=== PATIENT | female | born 1930 | race Caucasian/White ===

== ENCOUNTER → 2017-06-09 | Outpatient (CLI) | payer MEDICARE, BC ==
[~2017-06-09] MED LIST: ALDACTONE25 MG PO; ANTIVERT25 MG PO; ASPIR 8181 MG PO; BACTRIM DS TAB1 EACH PO; CALCIUM 600 +1 EAC2 PO; CARVEDILOL3.125 MG PO; CEFDINIR300 MG PO; COZAAR 25 MG TA25 M1 PO; ELIQUIS2.5 MG PO; ELIQUIS5 MG PO; ERYTHROMYCIN250 MG PO; FISH OIL 1,001000 M2 PO; FISHOIL; LUMIGAN2.5 M1 OP; NYSTATIN100000 UNI SW&SWALLOW; PACERONE 200 M200 M1 PO; PROTONIX40 M1 PO; TRAVATAN 0.004%5 ML OP; VITAMIN D1000 UNI1 PO; ZETIA10 MG PO; ZINC50 M1 PO
== END ==
LOC: M.RAD 09:07
DX: Z12.31 Encounter for screening mammogram for malignant neoplasm of breast (principal)

== ENCOUNTER 2017-08-19 11:47 | Inpatient (IN) | payer MEDICARE, BC ==
[~2017-08-19] VITALS: Ht 157.5 cm; Wt 57.2 kg
[~2017-08-19 11:47] MED LIST changes: -ALDACTONE25 MG PO; -ANTIVERT25 MG PO; -ASPIR 8181 MG PO; -CARVEDILOL3.125 MG PO; -CEFDINIR300 MG PO; -COZAAR 25 MG TA25 M1 PO; -ELIQUIS2.5 MG PO; -ELIQUIS5 MG PO; -ERYTHROMYCIN250 MG PO; -FISH OIL 1,001000 M2 PO; -LUMIGAN2.5 M1 OP; -NYSTATIN100000 UNI SW&SWALLOW; -PACERONE 200 M200 M1 PO; -PROTONIX40 M1 PO; -VITAMIN D1000 UNI1 PO; -ZINC50 M1 PO
[2017-08-19 11:51] VITALS: BP 144/73
[2017-08-19 12:08] LABS: ABSOLUTE BASOPHILS 0.1 thou/uL (0.0-0.2); ABSOLUTE EOSINOPHILS 0.1 thou/uL (0.0-0.7); ABSOLUTE LYMPHOCYTES 1.4 thou/uL (0.8-5.3); ABSOLUTE MONOCYTES 0.9 thou/uL (0.0-1.2); ABSOLUTE NEUTROPHILS 7.4 thou/uL (1.6-8.1); BASOPHILS 0.6 %; EOSINOPHILS 0.7 %; HEMATOCRIT 42.5 % (37.0-47.0); HEMOGLOBIN 14.2 gm/dL (12.0-15.0); LYMPHOCYTES 14.3 %; MCH 29.5 pg (26.0-34.0); MCHC 33.5 g/dL (28.0-37.0); MCV 88.2 fL (80.0-100.0); MONOCYTES 9.2 %; MPV 9.7 fl. (7.2-11.1); NUCLEATED RBCS 0 /100WBC; PLATELET COUNT* 247 thou/uL (150-400); POLYS 75.2 %; RBC 4.82 mil/uL (4.20-5.00); RDW-CV 13.1 % (10.5-14.5); WBC 9.8 thou/uL (4.0-11.0)
[2017-08-19 12:17] LABS: APTT 24.3 Seconds (25.0-31.3); INR 1.3; PROTIME 12.6 Seconds (9.20-11.50)
[2017-08-19 12:25] LABS: BUN 27 mg/dL (7-18); CALCIUM 9.1 mg/dL (8.5-10.1); CO2 25 mmol/L (21-32); CREATININE 0.8 mg/dL (0.6-1.3); GLUCOSE 124 mg/dL (70-99); POTASSIUM 3.6 mmol/L (3.5-5.1)
[2017-08-19] MEDS ORDERED: LUMIGAN2.5 M1 OP ×2 (12:27→14:59)
[2017-08-19] MEDS ORDERED: ZINC50 M1 PO (12:28)
[2017-08-19 12:36] LABS: ALBUMIN 3.8 g/dL (3.4-5.0); ALKALINE PHOSPHATASE 90 U/L (46-116); CK-MB MASS 3.4 ng/mL (<0.5-3.6); LIPASE 329 U/L (73-393); MAGNESIUM 1.7 mg/dL (1.8-2.4); NT-PRO BRAIN NAT PEPTIDE 3129 pg/mL (<300); SGOT 86 U/L (15-37); SGPT 109 U/L (30-65); TOTAL BILIRUBIN 1.3 mg/dL (<0.1-1.0); TOTAL PROTEIN 6.4 g/dL (6.4-8.2); TROPONIN-I LEVEL <0.06 ng/mL (<0.06)
[2017-08-19 13:01] LABS: CHLORIDE 106 mmol/L (98-107); SODIUM 142 mmol/L (136-145)
[2017-08-19 13:02] LABS: ANION GAP 11 mmol/L (7-16)
[2017-08-19 13:50] VITALS: BP 100/71
[2017-08-19 14:27] VITALS: BP 115/67
[2017-08-19] MEDS ORDERED: FISH OIL 1,001000 M2 PO (14:54)
[2017-08-19] MEDS ORDERED: VITAMIN D1000 UNI1 PO (14:58)
--- NOTE | 2017-08-19 15:02 | NUR ---
RECIEVED REPORT FROM GERMAN ARGUETA IN ER OF EXPECTED TRANSFER AT 1340- DX: SOA WITH CHEST PAIN; A-FIB WITH RVR RATES IN 130'S- PT ARRIVED TO UNIT VIA CART, SBA TO BED- VOCATIONAL NURSE PLACED ORDERED, TRACING A-FIB RATE CONTROLLED WITH CARDIZEM DRIP INFUSING AT 10ML/HRN PRESCIBED- PT A&O X4- CONTINENT OF BOWEL AND BLADDER, OCCASIONAL STRESS INCONTINENTS REPORTED- SBA WITH TRANSFERS FOR SAFETY- LCTA, DIMINISHED IN BASES, RESP EVEN AND UN-LABORED- SOA REPORTED ON EXERTION- VS 98.6 16 115/67 74 995 ON 2L VIA NC- ABDOMEN SOFT/ROUND/NON-TENDER, BS X4 QUADS- PT REPORTS LAST BM 08/17/17, REPORTS PROBLEMS WITH CONSTIPATION ON OCCASSION- +1 BLE EDEMA NOTED- SKIN C/D/I, HEALING LIGHT PICK RASH REPORTED TO BE FROM SHINGLES NOTED TO RIGHT CHIN- WEARS GLASSES FOR EYE SIGHT- REPORTS UPPER AND LOWER PARTIAL, BUT ONLY HAS UPPER PARTIAL WITH HER AT THIS TIME- IV NOTED TO RIGHT AC WITH CARDIZEM INFUSSING PRESCIBED- CARDIOLOGY HERE TO SEE WITH ORDERS NOTED FOR STRESS TEST IN AM, NPO AT MIDNIGHT WITH NO CAFFEINE AT THIS TIME TO COMPLETION OF TEST-PT DENIES ANY C/O PAIN/DISCOMFORT AT THIS TIME- CALL LIGHT AND PERSONAL BELONGINGS WITH IN REACH- HOURLY ROUNDS IN PLACE R/T SAFETY/NEEDS- ALL NEEDS MET AT THIS TIME-[facility]
--- NOTE | 2017-08-19 16:05 | EKG ---
[place] [address] ELECTROCARDIOGRAM REPORT Name: CICI CORTEZ Room: [address] IN 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 : 1930 Requested By: Tahir Escobar Order Number: [id number] MD: Carrington Vinson Measurements Intervals [place] Rate: 153 P: VA: QRS: 27 QRSD: 79 T: 148 QT: 298 QTc: 476 Interpretive Statements Atrial fibrillation with rapid V-rate Repolarization abnormality, prob rate related Compared to ECG 05/15/2011 08:22:36 Early repolarization now present Sinus rhythm no longer present Ventricular premature complex(es) no longer present Electronically Signed On 08-19-2017 16:05:26 CDT by Carrington Vinson [email or web address] <ELECTRONICALLY SIGNED> By: Carrington Vinson MD, [facility] 08/19/17 1605 1155 1155 Carrington Vinson MD, [facility] /EPI
--- NOTE | 2017-08-19 16:56 | 2DMMODE ---
[place] [address] 2 D/M-MODE ECHOCARDIOGRAM Name: CICI CORTEZ Room: [address] IN [facility]#: [id number] Admission: 08/19/17 Attend Phys: Lynda Sevilla, Discharge: Date of : 32 Date of Service: 08/19/17 1656 Report #: [id number] THIS REPORT FOR: //name// APPROVED REPORT Study performed: 08/19/2017 13:35:05 EXAM: Comprehensive 2D, Doppler, and color-flow Echocardiogram Patient Location: In-Patient Room #: er Status: routine BSA: 1.54 HR: 77 bpm BP: 102/53 mmHg Rhythm: NSR Other Information Study Quality: Good Indications Atrial Fibrillation 2D Dimensions LVEF(%): 21.17 (>50%) IVSd: 9.20 (7-11mm) LVOT Diam: 19.72 (18-24mm) LVDd: 40.92 mm PWd: 10.09 (7-11mm) Ascending Ao: 25.90 (22-36mm) LVDs: 37.03 (25-40mm) Aortic Root: 26.28 mm Cabrera's LVEF: 21.17 % Volumes Left Atrial Volume (Systole) LA ESV Index: 48.80 mL/m2 Aortic Valve AoV Peak Ruslan.: 1.09 m/s AO Peak Gr.: 4.77 mmHg LVOT Max P.05 mmHg AO Mean Gr.: 2.48 mmHg LVOT Mean P.90 mmHg LVOT Max V: 0.72 m/s AO V2 VTI: 16.20 cm LVOT Mean V: 0.43 m/s JENNY (VTI): 2.34 cm2 LVOT V1 VTI: 12.39 cm AI [place]: 2.32 m/s2 AI PHT: 517.87 [place] [address] 2 D/M-MODE ECHOCARDIOGRAM Name: CICI CORTEZ Room: [address]#: [id number] Admission: 08/19/17 Attend Phys: Lynda Sevilla, Discharge: Date of : 32 Date of Service: 08/19/17 1656 Report #: [id number] Mitral Valve MV Decel. Time: 188.28 ms MV PHT: 54.60 ms MVA (PHT): 4.03 cm2 TDI Medial E' Ruslan.: 0.09 m/s Lateral E' Ruslan.: 0.13 m/s Pulmonary Valve PV Peak Ruslan.: 0.78 m/s PV Peak Gr.: 2.45 mmHg Tricuspid Valve TR Peak Gr.: 19.15 mmHg RVSP: 34.00 mmHg Left Ventricle Left ventricle is moderately dilated. There is severe diffuse hypokinesis of LV wall motion There is normal left ventricular wall thickness. Left ventricular systolic function is severely decreased. LVEF is 20-25%. Right Ventricle The right ventricle is normal size. The right ventricular systolic function is normal. Atria Left atrium is moderately dilated. Right atrium is severely dilated. Aortic Valve Mild aortic valve sclerosis. Mild to moderate aortic regurgitation. There is no aortic valvular stenosis. Mitral Valve The mitral valve is normal in structure. Moderate mitral regurgitation. No evidence of mitral valve stenosis. Tricuspid Valve The tricuspid valve is normal in structure. Moderate to severe tricuspid regurgitation. The RVSP is 30-35 mmHg. Pulmonic Valve The pulmonary valve is normal in structure. There is no pulmonic valvular regurgitation[place] [address] 2 D/M-MODE ECHOCARDIOGRAM Name: DIEGOSHELBICICI tOf Room: [address]#: [id number] Admission: 08/19/17 Attend Phys: Lynda Sevilla, Discharge: Date of : 31 Date of Service: 08/19/17 1656 Report #: [id number] The aortic root is normal in size. IVC is dilated and collapses <50% with inspiration. Pericardium There is no pericardial effusion. Left pleural effusion. <Conclusion> Left ventricle is moderately dilated. There is normal left ventricular wall thickness. Left ventricular systolic function is severely decreased. LVEF is 20-25%. The right ventricle is normal size. Left atrium is moderately dilated. Right atrium is severely dilated. Mild aortic valve sclerosis. Mild to moderate aortic regurgitation. There is no aortic valvular stenosis. The tricuspid valve is normal in structure. Moderate to severe tricuspid regurgitation. The RVSP is 30-35 mmHg. The aortic root is normal in size. IVC is dilated and collapses <50% with inspiration. There is severe diffuse hypokinesis of LV wall motion The mitral valve is normal in structure. Moderate mitral regurgitation. <ELECTRONICALLY SIGNED> By: Carrington Vinson MD, FACC 08/19/171655 55 55 Carrington Vinson MD, FACC /INF
[2017-08-19 20:00] VITALS: BP 130/76
[2017-08-20] VITALS: BP 114/62
[2017-08-20 04:00] VITALS: BP 124/66
[2017-08-20 04:54] LABS: HEMATOCRIT 37.5 % (37.0-47.0); HEMOGLOBIN 12.4 gm/dL (12.0-15.0); MCH 29.1 pg (26.0-34.0); MCHC 33.1 g/dL (28.0-37.0); MCV 88.1 fL (80.0-100.0); MPV 10.1 fl. (7.2-11.1); RBC 4.26 mil/uL (4.20-5.00); WBC 7.8 thou/uL (4.0-11.0)
[2017-08-20 05:09] LABS: CALCIUM 8.4 mg/dL (8.5-10.1); CREATININE 0.5 mg/dL (0.6-1.3); POTASSIUM 3.7 mmol/L (3.5-5.1)
[2017-08-20 08:00] VITALS: BP 131/70
--- NOTE | 2017-08-20 09:14 | NUR ---
ASSUMED CARE OF PT THIS AM AROUND 0715- OUTDOOR EMERGENCY CARE TECHNICIAN IN PLACE ORDERED, TRACING A-FIB, RATE CONTROLED WITH IV CARDIZEM INFUSING AT 10ML/HR INDICATED- UPON ASSESSMENT PT NOTED TO BE RESTING IN BED- PT A&O X4, FORGETFUL AT TIMES- CONTINENT OF BOWEL AND BLADDER, OCCASIONAL STRESS INCONTINENTS NOTED- SBA WITH TRANSFERS FOR SAFETY- LCTA, DIMINISHED IN BASES- RESP EVEN AND UN-LABORED- VSS, O2 SAT 93% ON RA- ABDOMEN SOFT/FLAT/NON-TENDER, BS X4 QUADS- LAST BM REPORTED X3 DAYS AGO- IV NOTED TO LEFT FA INTACT, LR INFUSING ORDERED, IV NOTED TO RIGHT AC INTACT WITH CARDIZEM INFUSING ORDERED- IV ABT GIVEN PRESCIBED, NO ADVERSE REACTIONS TO NOTE- STRESS TEST CANCELLED THIS AM WITH NEW MEDICATIONS STARTED AND GIVEN R/T HF THIS AM PER L.CASE, TAP GRINDER- 2+ PITTING EDEMA NOTED TO BLE WITH IV LASIX 40MG GIVEN PRESCIBED- PT CURRENLTY NPO FOR POSSIBLE CATH THIS SHIFT- PT DENIES ANY C/O PAIN/DISCOMFORT AT THIS TIME- CALL LIGHT AND PERSONAL BELONGINGS WITH IN REACH- HOURLY ROUNDS IN PLACE R/T SAFETY/NEEDS- ALL NEEDS MET AT THIS TIME-WCTM
[2017-08-20 11:44] VITALS: BP 100/45
--- NOTE | 2017-08-20 11:59 | NUR ---
CM ASSESSMENT: Pt is A&O. Resides at home with her son. Independent with ADLs, continues to cook, clean and drive. No DME. No hx of HH. Hx of skilled at [facility] after a broken leg. Plan to have stress test today. Pt voiced concern regarding the potential cost of medications at v[place], updated [facility] [employer]. Goal is to return home once medically stable. Following.
[2017-08-20 15:47] VITALS: BP 98/47
--- NOTE | 2017-08-20 16:04 | CARDNUC ---
[place] [address] CARDIAC NUCLEAR IMAGING REPORT Name: CICI OCRTEZ Room: [address] IN [facility]#: [id number] Admission: 08/19/17 Attend Phys: Lynda Sevilla, Discharge: Date of : 32 Date of Service: 08/20/17 1603 Report #: [id number] THIS REPORT FOR: //name// APPROVED REPORT Study performed: 08/19/2017 14:36:00 Exam: Nuclear Stress Test Indication: Chest pain, Atrial Fibrillation Patient Location: In-Patient Room #: 200 Stress Tech: Subha Tesfaye Stress Nurse: Alejandra Alcantar RN NM Tech:ENMA Kenney Ht: 5 ft 2 in Wt: 130 lbs BSA: 1.59 m2 BMI: 23.77 Medical History Medical History: hyperlipidemia Medications: diltiazem, amiodorone, apixaban, carvedilol, asa 81, losartan Allergies: nkda Cardiac Risk Factors: age, hyperlipidemia Stress Test Details Stress Test: Pharmacologic stress testing performed using 0.4 mg of regadenoson per 5 mL given IV over 10 seconds. Reason for pharmacologic stress test: physical limitation. HR Resting HR: 60 bpm Max Heart Rate (APMHR): 135 bpm Max HR Achieved: 78 bpm Target HR (85% APMHR): 114 bpm % of APMHR: 57 Recovery HR: 65 bpm HR response to stress: Normal HR response to stress BP Resting BP: 101/54 mmHg Max BP: 110/57 mmHg BP response to stress: Normal blood pressure response to stress. ECG Resting ECG: [place] [address] CARDIAC NUCLEAR IMAGING REPORT Name: CICI CORTEZ Room: [address]#: [id number] Admission: 08/19/17 Attend Phys: Lynda Sevilla, Discharge: Date of : 31 Date of Service: 08/20/17 1603 Report #: [id number] Stress ECG: afib ST Change: None Recovery ECG: afib Clinical Reason for Termination: Completed protocol Stress Symptoms: None Exercise duration: 0 min sec Exercise capacity: 1 METs Stress ECG Conclusion negative NM EXAM: Myocardial Perfusion STRESS/REST Imaging Protocol: Stress Tc-99m/Rest Tc-99m 2 days Pharmacologic Stress Pharmacologic stress test was performed by injecting Regadenoson 0.4 mg IV push followed by the intravenous injection of 31.4 mCi of Tc-99m Sestamibi. Time of stress injection: 1340 Date: 08/20/2017 Time of stress imagin Administration Route: IV Gated Stress SPECT was performed 40 minutes after stress injection. The images were gated to evaluate regional wall motion and calculate left ventricular ejection fraction. Prone imaging was performed. Study Quality Study: Good Artifact: No artifact Study Data At rest, the left ventricular ejection fraction was 39%.. SSS: 0 SRS: SDS: Perfusion Normal perfusion on the stress images. Wall Motion global lv dysfunction [place] [address] CARDIAC NUCLEAR IMAGING REPORT Name: CICI CORTEZ Room: [address]#: [id number] Admission: 08/19/17 Attend Phys: Lynda Sevilla, Discharge: Date of : 31 Date of Service: 08/20/171602 Report #: [id number] ECG Findings: negative for ischemia Clinical Findings: negative for ischemia Nuclear Findings: negative for ischemia Exercise Capacity: not assessed Left Ventricular Function: abnormal Risk Study: moderate Findings compatible with a nonischemic cardiomyopathy <Conclusion> negative <ELECTRONICALLY SIGNED> By: Michele Lino MD, FACC 08/20/171602 02 02 Michele Lino MD, FACC /INF
--- NOTE | 2017-08-20 16:40 | NUR ---
PT CURRENTLY RESTING IN BED, SON AT SIDE VISITING- PICKLE PUMPER IN PLACE ORDERED, TRACING A-FIB/RATE CONTROLLED- CARDIZEM DRIP D/C'D THIS SHIFT ORDERED- STRESS TEST COMPLETED ORDERED, NOTED TO BE NEAGATIVE FOR ISCHEMIA- LVF ABNORMAL; RISK STUDY MODERATE- IV TO RIGHT AC AND LEFT FA INTACT AND SL-GOOD PO INTAKE NOTED- DENIES ANY C/O PAIN/DISCOMFORT- CALL LIGHT AND PERSONAL BELONGINGS WITH IN REACH- ALL NEEDS MET AT THIS TIME-WCTM
[2017-08-20 20:00] VITALS: BP 95/64
[2017-08-21] VITALS: BP 112/56
[2017-08-21 04:44] VITALS: BP 121/65
--- NOTE | 2017-08-21 05:29 | NUR ---
ASSUMED CARE AROUND 1930. PT A/OX4 BUT FORGETFUL DURING NIGHT, ATTEMPTING TO GET UP AND STATING SHE NEEDED TO GET TO THE HOSPITAL. EASILY REORIENTED AND PLEASANT. TELE MONITOR TRACING AFIB WITH HR 60-70'S. ON ROOM AIR, BUT APPEARS DYSPNEIC AT TIMES. IV'S SALINE LOCKED. BP STABLE. DENIED PAIN. FALL PRECAUTIONS IN PLACE, CALL LIGHT IN REACH, WILL CONTINUE WITH PLAN OF CARE.
--- NOTE | 2017-08-21 07:15 | NUR ---
ASSUMED CARE OF PT ASSESSED AND DOCUMENTED. PT IS ON CARDIAC MONITER TRACING A-FIB HR 81. PT IS A&O WITH NO C/O PAIN. VSS WNL. PT IS ON ROOM AIR. SHE IS AFEBRILE. BED IS IN LOW POSTION CALL LIGHT IS IN REACH. WM.
[2017-08-21 08:00] VITALS: BP 146/78
[2017-08-21 12:00] VITALS: BP 82/47
--- NOTE | 2017-08-21 15:48 | NUR ---
PAGED DR PEREZ RE: PTS BRADICARDIA OF 27. SHE CAME RIGHT BACK TO 40'S. DR BREAUX IS AWARE. HE SPOKE WITH PT AND PT WANTS TO BE A FULL CODE.
[2017-08-21 16:22] VITALS: BP 99/58
--- NOTE | 2017-08-21 17:08 | NUR ---
PT HAS RESTED IN HER ROOM THIS SHIFT. PTS HR HAS DROPPED BELOW 50 X3 THIS SHIFT. EACH TIME HR DROPS PT HAS NAUSEA. PT HAS NOT HAD AN APPETITE. HAVE TRIED TO ENCOURAGE EATING. PT HAS NS RUNNING AT 250 X2 HOURS. GAVE PT A FAN AFTER PT C/O HEAT. PT HAS HAD NO S OR SX OF ADVERSE REACTION TO ABT'S NOTED. PT DID STATE SHE WISHES TO BE A FULL CODE TO DR BREAUX. PLACED 02 2L ON PT AFTER 02 DROPPED BELOW 90. PT GETS ANXIOUS AT TIMES. SON IS AT BEDSIDE. EDUCATION GIVEN ON DEMAND. HOURLY ROUNDING COMPLETE.
[2017-08-21 20:15] VITALS: BP 110/78
[2017-08-22] VITALS: BP 144/68
[2017-08-22 04:00] VITALS: BP 148/77
--- NOTE | 2017-08-22 06:25 | NUR ---
ASSUMED CARE AROUND 1930. PT A/OX3, FORGETFUL AND DISORIENTED ON LOCATION AT TIMES ATTEMPTING TO GET UP WITHOUT ASSISTANCE THINKING SHE WAS AT HOME. VERY PLEASANT. TELE MONITOR TRACING AFIB WITH HR 70-80'S, NO EPISODES OF BRADYCARDIA THROUGHOUT NIGHT. VSS, AFEBRILE. ON 2L NC, DYSPNEA STILL NOTED. IV'S SALINE LOCKED. UP SBA TO BR. PT UNSTEADY ON FEET. CALL LIGHT IN REACH, BEDALARM IN PLACE, WILL CONTINUE WITH PLAN OF CARE.
[2017-08-22 08:18] VITALS: BP 142/90
--- NOTE | 2017-08-22 09:18 | NUR ---
ASSUMED CARE OF PT THIS AM AROUND 07- ARTIFICIAL CHERRY MAKER IN PLACE ORDERED, TRACING A-FIB/RATE CONTROLLED- UPON ASSESSMENT PT NOTED TO BE RESTING IN BED- T A&O X 3, WITH INTERMITTENT CONFUSSION NOTED- CONTINENT OF BOWEL AND BLADDER, STRESS INCONTINENTS ON OCCASION- ASSIST X1 WITH TRANSFERS, UNSTEADY GAIT NOTED- LCTA, RESP EVEN AND UN-LABORED AT REST; DYSPNEA NOTED ON EXERTION- VSS, O2 SAT 98% ON RA- ABDOMENT SOFT/ROUND/NON-TENDER, BS X4 QUADS- LAST BM REPORTED 08/20/17- 2+ BLE EDEMA NOTED, LEG ELEVATION ENCOURAGED- IV NOTED TO LEFT FA AND RIGHT FA INTACT AND SL- IV ABT GIVEN THIS AM, NO ADVERSE REACTIONS TO NOTE- FAIR PO INTAKE NOTED THIS AM WITH BREAKFAST- 2/1 PULSES- PT DENIES ANY C/O PAIN/DISCOMFORT AT THIS TIME- BED ALARM IN PLACE AND WORKING FOR PT SAFETY- CALL LIGHT AND PERSONAL BELONGINGS WITH IN REACH- HOURLY ROUNDS IN PLACE R/T SAFETY/NEEDS- ALL NEEDS MET AT THIS TIME-WCTM
[2017-08-22 12:00] VITALS: BP 144/79
--- NOTE | 2017-08-22 14:56 | EKG ---
[place] [address] ELECTROCARDIOGRAM REPORT Name: CICI CORTEZ Room: [address] ADM IN .R.#: [id number] Admission: 08/19/17 Attend Phys: Lynda Sevilla MD Discharge: Date of : 31 Report #: [id number] THIS REPORT FOR: //name// [facility] Test Date: 2017-08-21 Test Time: 15:24:41 Pat Name: CICI CORTEZ Department: Room: [address] Gender: F Fixture Maker: : 1930 Requested By: Horace Flores Order Number: [id number] Saúl MD: Ishan Becker Measurements Intervals [place] Rate: 67 P: MA: QRS: 31 QRSD: 100 T: QT: 531 QTc: 561 Interpretive Statements Atrial fibrillation Nonspecific T abnormalities, diffuse leads Prolonged QT interval Compared to ECG 08/19/2017 11:55:16 T-wave abnormality now present Prolonged QT interval now present Early repolarization no longer present Electronically Signed On 08-22-2017 14:56:31 CDT by Ishan Becker [email or web address] <ELECTRONICALLY SIGNED> By: Ishan Becker MD, FACC 08/22/17 1456 1524 1524 Ishan Becker MD, FAC /EPI
[2017-08-22 16:00] VITALS: BP 138/80
--- NOTE | 2017-08-22 17:22 | NUR ---
PT CURRENTLY RESTING IN BED- CYTOGENETIC TECHNICIAN IN PLACE AND CONTINUED ORDERED, TRACING A-FIB RATE CONTROLED- IV TO RIGHT AND LEFT FA INTACT AND SL- POOR PO INTAKE NOTED WITH MEALS THIS SHIFT- PT STATES TO BE NAUSIOUS- PRN ZOFRAN GIVEN PRIOR TO LUNCH AN DINNER TO HELP WITH NAUSEA, SLIGHT IMPROVEMENT NOTED WITH INTAKE- COREG RESUMED PER THIS SHIFT AT 1.5625 BID, HR STABLE AT THIS TIME- CHEST X-RAY ORDERED FOR IN AM PER - PT DENIES ANY PAIN- CALL LIGHT AND PERSONAL BELONGINGS WITH IN REACH- PT CHECKED ON FREQUENTLY R/T SAFETY/NEEDS- ALL NEEDS MET AT THIS TIME-WCTM
[2017-08-22 20:00] VITALS: BP 143/90
[2017-08-23] VITALS: BP 145/87
--- NOTE | 2017-08-23 01:59 | NUR ---
ASSUMED CARE AT 1999, ASSESSMENT CHARTED. PATIENT ALERT/ORIENTED X4, RESTING IN BED. DENIES PAIN OR NEEDS. MEDS PER MAR. REFUSING SCD'S. BED ALARM ON. CALL LIGHT WITHIN REACH, ENCOURAGED TO CALL FOR NEEDS.
[2017-08-23 04:00] VITALS: BP 143/84
--- NOTE | 2017-08-23 04:27 | NUR ---
STAFF IN ROOM TO DO AM VITALS. PATIENT REQUESTING TO USE BATHROOM. UP WITH STANDBY ASSIST. REMAINS ALERT/ORIENTED X4, STATES HOPING TO GO HOME TODAY. BED ALARM REPLACED. WILL MONITOR.
[2017-08-23 08:00] VITALS: BP 154/100
[2017-08-23 11:30] VITALS: BP 140/81
--- NOTE | 2017-08-23 13:09 | NUR ---
ASSUMED RESPONSIBILITY OF PT THIS AM PT IS ALERT AND ORIENTED BUT FORGETFUL AFIB ON THE MONITOR TACHY AT TIMES LOW 100S ELIQUIS STARTED BLEEDING PRECAUTIONS IN PLACE SBA TO BSC 2+ EDEMA TO BLE ELEVATED WHEN IN BED IV TO RFA WENT BAD SO DC'D STILL IV TO LFA DENIES ANY PAIN POOR APPETITE AND NAUSEATED AT TIMES CALL LIGHT IN REACH BED ALARM ON
[2017-08-23 16:00] VITALS: BP 137/79
[2017-08-23 19:30] VITALS: BP 137/85
--- NOTE | 2017-08-23 20:00 | NUR ---
UPON ASSESSMENT THIS RN NOTICED PT WITH SLURRED SPEECH. SPOKE WITH PREVIOUS NIGHT RN ABOUT PATIENTS BASELINE IN WHICH THE PATIENT DID NOT HAVE. PERFORMED BRIED NIH ON PATIENT- IN WHICH SHE SCORED A 2 FOR DROWSINESS AND SLURRED SPEECH. I ALSO ATTEMPTED TO HAVE PATIENT SWALLOW SOME WATER AND A SMALL PILL AND SHE WAS UNABLE TO SWALLOW WITHOUT CHOKING AND GAGGING. PT STATED THAT SHE HAS HAD WORSENING DYSPHAGIA OVER THE LAST COUPLE OF DAYS. SPOKE WITH DR HERNÁNDEZ ON UNIT ABOUT PT. ORDERED HEAD CT AND SPEECH EVAL FOR PT. WILL CONT TO CLOSELY MONITOR.
[2017-08-24] VITALS (10 sets, daily range): BP systolic 115–142; BP diastolic 54–99
--- NOTE | 2017-08-24 04:44 | NUR ---
END SHIFT: PT REMAINS SLURRED IN SPEECH WITH DYSPHAGIA WITH NO CHANGES. NIH REMAINS 2. RESTED WELL. PT IS STILL DROWSY BUT ORIENTED. AFIB ON MONITOR. RATE CONTROLLED. VSS. SAFETY PRECAUTIONS IN PLACE. CALL LIGHT IN REACH. WILL CONT TO MONITOR.
[2017-08-24 05:35] LABS: CALCIUM 8.4 mg/dL (8.5-10.1); CREATININE 0.7 mg/dL (0.6-1.3)
--- NOTE | 2017-08-24 11:24 | NUR ---
ASSUMED RESPONSIBILITY OF PT THIS AM PT IS ALERT AND ORIENTED X 4 GARBLED SPEECH FROM [facility] POSSIBLY NYSTATIN ORDERED SRINIVASAN WILL BE THIS AFTERNOON MAG AND POTASSIUM ARE BEING REPLACED LFA IV CONT NEGATIVE FOR SEPSIS HRIR AT 93 AND TRACKING A-FIB 2+ EDEMA TO BLE CONTINUES POOR APPETITE SBA TO BSC CALL LIGHT IN REACH WILL CONT TO MONITOR
--- NOTE | 2017-08-24 18:38 | NUR ---
PT UP FROM SRINIVASAN BACK IN NSR WITH PACS IN THE 50S TO 70S ALERT AND ORIENTED X4 FORGETFUL AT TIMES DENIES ANY PAIN IS NOT DROWSY SON AT BEDSIDE NO CONCERNS AT THIS TIME NYSTATIN SWISH AND SWALLOW CONTINUES FAIR APPETITE CALL LIGHT IN REACH
[2017-08-25] VITALS: BP 134/67
[2017-08-25 04:00] VITALS: BP 144/66
--- NOTE | 2017-08-25 04:23 | NUR ---
END SHIFT: PT RESTED WELL. NO COMPLAINTS. SR/SB WITH FREQUENT PAC'S. ADDITIONAL EKG OBTAINED OVER SHIFT TO CONFIRM. PT REMAINS DROWSY. NO C/O PAIN. PT IS STILL VERY WEAK AND DROWSY. O2 SATS HAVE BEEN DROPPING ON RA AND PT IS REQUIRING O2 TO KEEP O2 SAT >91%. PT IS CONCERNED BY THIS. SAFETY PRECAUTIONS IN PLACE. CALL LIGHT IN REACH. PERFORMED HOURLY ROUNDING. WILL CONT TO MONITOR.
[2017-08-25 05:00] LABS: HEMATOCRIT 38.7 % (37.0-47.0); HEMOGLOBIN 13.1 gm/dL (12.0-15.0); MCHC 33.8 g/dL (28.0-37.0); MCV 86.1 fL (80.0-100.0); MPV 9.8 fl. (7.2-11.1); RBC 4.5 mil/uL (4.20-5.00); RDW-CV 13.2 % (10.5-14.5); WBC 10.2 thou/uL (4.0-11.0)
[2017-08-25 05:40] LABS: CALCIUM 8.6 mg/dL (8.5-10.1); CREATININE 0.7 mg/dL (0.6-1.3); POTASSIUM 3.6 mmol/L (3.5-5.1)
--- NOTE | 2017-08-25 07:15 | NUR ---
CHANGE OF SHIFT, BEDSIDE REPORT GIVEN ASSUMED PATIENT CARE PATIENBT SEEN AT BEDSIDE, NO REQUESTS
[2017-08-25 08:00] VITALS: BP 148/65
[2017-08-25] MEDS ORDERED: PACERONE 200 M200 M1 PO (08:29)
[2017-08-25] MEDS ORDERED: CEFDINIR300 MG PO (08:29)
[2017-08-25] MEDS ORDERED: NYSTATIN100000 UNI SW&SWALLOW (08:29)
[2017-08-25] MEDS ORDERED: CARVEDILOL3.125 MG PO (08:29)
[2017-08-25] MEDS ORDERED: ASPIR 8181 MG PO (08:29)
[2017-08-25] MEDS ORDERED: COZAAR 25 MG TA25 M1 PO (08:29)
[2017-08-25] MEDS ORDERED: ELIQUIS5 MG PO (08:29)
[2017-08-25 10:28] VITALS: BP 148/65
[2017-08-25 11:24] VITALS: BP 147/72
[2017-08-25 14:14] VITALS: BP 148/65
--- NOTE | 2017-08-25 14:15 | NUR ---
patient dcd to home with h/h iv and heart monitor removed personal belongings returned all dc info given, acknowledged and signed copies given assisted out via [facility] good condition to waitng car
--- NOTE | 2017-08-25 15:01 | NUR ---
[facility] Son provided dc transportation.
--- NOTE | 2017-08-25 15:46 | EKG ---
[place] [address] ELECTROCARDIOGRAM REPORT Name: CICI CORTEZ Room: [address] IN [facility]#: [id number] Admission: 08/19/17 Attend Phys: Lynda Sevilla MD Discharge: 08/25/17 Date of : 32 Report #: [id number] THIS REPORT FOR: //name// [facility] Test Date: 2017-08-25 Test Time: 03:26:13 Pat Name: CICI CORTEZ Department: Room: [address] Gender: F Traffic Representative: MERI : 1930 Requested By: Lynda Sevilla Order Number: [id number] Saúl MD: Clemente Lafleur Measurements Intervals [place] Rate: 61 P: 73 [place]: 59 QRS: 29 QRSD: 97 T: 103 QT: 591 QTc: 596 Interpretive Statements Sinus rhythm Short [place] interval Nonspecific T abnrm, anterolateral leads Prolonged QT interval Compared to ECG 08/21/2017 15:24:41 Atrial fibrillation no longer present Electronically Signed On 08-25-2017 15:46:07 CDT by Clemente Lafleur [email or web address] <ELECTRONICALLY SIGNED> By: Clemente Lafleur MD, FAC 08/25/17 1546 0326 0326 Clemente Lafleur MD, [facility] /EPI
--- NOTE | 2017-08-31 09:55 | TEE ---
[place] [address] TRANSESOPHAGEAL ECHOCARDIOGRAM Name: CICI CORTEZ Room: [address]#: [id number] Admission: 08/19/17 Attend Phys: Lynda Sevilla, Discharge: 08/25/17 Date of : 32 Date of Service: 08/24/17 1704 Report #: [id number] THIS REPORT FOR: //name// APPROVED REPORT Study performed: 08/24/2017 14:35:20 EXAM: Transesophageal Echocardiogram Patient Location: In-Patient Room #: 200 Status: routine BSA: 1.61 HR: 92 bpm BP: 130/82 mmHg Rhythm: Atrial Fibrillation Other Information Study Quality: Good Indications Atrial Fibrillation Echo Enhancing Agent Indication: Rule out Shunt Agent(s) / Amount(s) Used: Agitated Saline 10 cc Procedure After obtaining informed consent, patient underwent transesophageal echo in the [employer]. Type of Sedation : Conscious Sedation Sedation was administered by Marialuisa Conte RN. Sedation start time: 1450 Case end Time: 1505 Sedation was achieved intravenously with: Versed (1) Fentanyl (25) Transesophageal probe was inserted and advanced into esophagus without difficulty by Ishan Becker MD, FACC. Echo enhancement indication: R/O Septal defect. Echo enhancement agent administered: Agitated Saline The SRINIVASAN was performed without complications. Synchronized Cardioversion acheived with 360 Joules after 2 attempt(s). Rhythm following Synchronized Cardioversion: Normal Sinus Rhythm Throughout the procedure, the blood pressure, pulse oximetry, cardiac rhythm, and rate were monitored. The patient tolerated the procedure without adverse effects. Recovery [address] [address] TRANSESOPHAGEAL ECHOCARDIOGRAM Name: CICI CORTEZ Room: [address]#: [id number] Admission: 08/19/17 Attend Phys: Lynda Sevilla, Discharge: 08/25/17 Date of : 32 Date of Service: 08/24/17 1704 Report #: [id number] from conscious sedation was uneventful and vital signs were stable. Left Ventricle The left ventricle is normal size. There is severe global hypokinesis. There is normal left ventricular wall thickness. Left ventricular systolic function is severely decreased. LVEF is 20-25%. Right Ventricle The right ventricle is normal size. The right ventricular systolic function is normal. Atria No thrombus is visualized in the left atrium or appendage. Interatrial septum is intact without evidence of ASD or PFO. The right atrium size is normal. Aortic Valve The aortic valve is normal in structure. Moderate aortic regurgitation. There is no aortic valvular stenosis. Mitral Valve The mitral valve is normal in structure. Moderate mitral regurgitation. No evidence of mitral valve stenosis. Tricuspid Valve The tricuspid valve is normal in structure. Pulmonic Valve The pulmonary valve is normal in structure. Great Vessels The aortic root is normal in size. Pericardium There is no pericardial effusion. <Conclusion> The left ventricle is normal size. There is normal left ventricular wall thickness. Left ventricular systolic function is severely decreased. LVEF is 20-25%. There is severe global hypokinesis. No thrombus is visualized in the left [place] [address] TRANSESOPHAGEAL ECHOCARDIOGRAM Name: CICI CORTEZ Room: [address] IN M.R.#: [id number] Admission: 08/19/17 Attend Phys: Lynda Sevilla, Discharge: 08/25/17 Date of : 32 Date of Service: 08/24/171703 Report #: [id number] Interatrial septum is intact without evidence of ASD or PFO. Moderate aortic regurgitation. Moderate mitral regurgitation. <ELECTRONICALLY SIGNED> By: Ishan Becker MD, FACC 08/24/171703 03 03 Ishan Becker MD, FACC /INF
--- NOTE | 2017-09-06 08:14 | CARD ---
[address] [address] CARDIAC CATH REPORT Name: CICI CORTEZ Room: [address]#: [id number] Admission: 08/19/17 Attend Phys: Lynda Sevilla MD Discharge: 08/25/17 Date of : 31 Report #: [id number] THIS REPORT FOR: //name// CC: Lynda Sevilla Primary Care Provider Elizabeth Loni DATE OF SERVICE: 08/24/2017 PROCEDURE: Transesophageal guided cardioversion. DESCRIPTION OF PROCEDURE: After informed consent was obtained, a transesophageal echocardiogram was performed and will be reported separately. Finding no evidence of intracardiac thrombus adequate sedation was assured. The patient was cardioverted to normal sinus rhythm with a biphasic shock of 360 joules after a failed biphasic shock of 225 joules. The patient did ultimately maintained sinus rhythm and was discharged to the floor in stable condition. IMPRESSION: 1. Persistent atrial fibrillation. 2. Successful direct current cardioversion to normal sinus rhythm. <ELECTRONICALLY SIGNED> By: Ishan Becker MD, FACC 09/06/17 0814 1645 1943[facility] Ang[facility] Becker MD, FACC /nt
--- NOTE | 2017-09-07 17:05 | CON ---
[address] [address] CONSULTATION Name: CICI CORTEZ Room: [address]#: [id number] Admission: 08/19/17 Attend Phys: Lynda Sevilla MD Discharge: 08/25/17 Date of : 31 Report #: [id number] THIS REPORT FOR: //name// CC: Lynda Ivey DATE OF SERVICE: 08/24/2017 HISTORY OF PRESENT ILLNESS: This is an 86-year-old female patient who was evaluated by me for speech difficulty. It was moderately severe. It started spontaneously. It was not associated with any focal deficit or headache. She thinks it has improved to some extent. REVIEW OF SYSTEMS: Indicate that this patient was diagnosed with thrush and had some infection in the mouth region. She was admitted because she was in atrial fibrillation. She is being evaluated by Cardiology. She did have some chest pain a few days ago. Again, on admission, when I saw, the patient was not having any chest pain. She has a history of high cholesterol, hysterectomy, glaucoma in the past. She has some venous stasis. She is being evaluated by Cardiology. I carried out the 14-point review of system and this was her relevant 14-point review of system. PAST MEDICAL HISTORY: Negative for any stroke. FAMILY HISTORY: Negative for early age stroke. SOCIAL HISTORY: Indicates she does not smoke or drink any alcohol. PHYSICAL EXAMINATION: NEUROLOGIC: Indicate she is alert, responsive, able to follow simple and complex command. Her speech is slightly slurred. Her fund of knowledge and memory is at her baseline. Cranial nerve examination 2-12 does not appear to be showing any definite abnormality. Her strength, sensation, reflexes and tone are symmetrical. There is no papilledema. There is no meningeal sign. There is no cerebellar sign. GENERAL: She is moderately built individual who does not have any dysmorphic features of eyes, ears and face. Her vision and hearing looks adequate. EXTREMITIES: Her pulses are palpable. She has no edema, cyanosis or jaundice. CARDIAC: Indicate she is admitted with atrial fibrillation. RESPIRATORY: Does not demonstrate any respiratory difficulty or rhonchi on either side. VITAL SIGNS: Her blood pressure is 115/79, respirations 16, pulse is 106, temperature is 97.4. LABORATORY DATA: Her WBC count is normal. She did have a carotid Doppler done which was unremarkable. Her MRI is pending and we [place] [address] CONSULTATION Name: CICI CORTEZ Room: [address]#: [id number] Admission: 08/19/17 Attend Phys: Lynda Sevilla MD Discharge: 08/25/17 Date of : 31 Report #: [id number]. IMPRESSION: If this patient has a focal pathology, I suspect that is probably the cause of her speech difficulty. However, because of the atrial fibrillation, central nervous system cause should be excluded. She is already scheduled to have an MRI done and we will see what the MRI shows and go from there. Thank you very much for this referral and if you have any question, please feel free to contact me. <ELECTRONICALLY SIGNED> By: Vikas Bridges MD 09/07/17 1705 1241 [id number] Bridges MD /nt
== END 2017-08-25 14:46 | disposition home health service (06) | DRG 871 ==
LOC: M.ERS 11:47 → M.TBA-ER 12:57 → M.2W 12:57
PROVIDERS: Emergency Medicine Emergency Medical Services; Internal Medicine Cardiovascular Disease; ADMIT Internal Medicine
DX: A41.9 Sepsis, unspecified organism (principal); I50.21 Acute systolic (congestive) heart failure; J18.1 Lobar pneumonia, unspecified organism; J96.01 Acute respiratory failure with hypoxia; I50.23 Acute on chronic systolic (congestive) heart failure; I42.8 Other cardiomyopathies; I48.91 Unspecified atrial fibrillation; H40.9 Unspecified glaucoma; I87.8 Other specified disorders of veins; B37.9 Candidiasis, unspecified; R13.10 Dysphagia, unspecified; E78.00 Pure hypercholesterolemia, unspecified; M19.90 Unspecified osteoarthritis, unspecified site; Z79.899 Other long term (current) drug therapy; Z90.710 Acquired absence of both cervix and uterus

== ENCOUNTER 2017-09-04 18:11 | Inpatient (IN) | payer MEDICARE, BC ==
[~2017-09-04] VITALS: Ht 157.5 cm; Wt 48.1 kg
[~2017-09-04 18:11] MED LIST changes: +ASPIR 8181 MG PO; +CARVEDILOL3.125 MG PO; +CEFDINIR300 MG PO; +COZAAR 25 MG TA25 M1 PO; +ELIQUIS5 MG PO; +FISH OIL 1,001000 M2 PO; +LUMIGAN2.5 M1 OP; +NYSTATIN100000 UNI SW&SWALLOW; +PACERONE 200 M200 M1 PO; +VITAMIN D1000 UNI1 PO; +ZINC50 M1 PO
[2017-09-04 18:21] VITALS: BP 177/80
[2017-09-04] MEDS ORDERED: ALDACTONE25 MG PO (18:24)
[2017-09-04] MEDS ORDERED: COZAAR 25 MG TA25 M1 PO (18:25)
[2017-09-04 18:51] LABS: ABSOLUTE BASOPHILS 0.1 thou/uL (0.0-0.2); ABSOLUTE EOSINOPHILS 0.2 thou/uL (0.0-0.7); ABSOLUTE LYMPHOCYTES 1.4 thou/uL (0.8-5.3); ABSOLUTE MONOCYTES 0.8 thou/uL (0.0-1.2); ABSOLUTE NEUTROPHILS 4.8 thou/uL (1.6-8.1); BASOPHILS 1.6 %; HEMATOCRIT 46.7 % (37.0-47.0); HEMOGLOBIN 15.4 gm/dL (12.0-15.0); LYMPHOCYTES 19.3 %; MCH 28.3 pg (26.0-34.0); MCHC 32.9 g/dL (28.0-37.0); MONOCYTES 11.2 %; MPV 9.3 fl. (7.2-11.1); NUCLEATED RBCS 0 /100WBC; PLATELET COUNT* 272 thou/uL (150-400); POLYS 64.9 %; RBC 5.43 mil/uL (4.20-5.00); RDW-CV 13.6 % (10.5-14.5); WBC 7.5 thou/uL (4.0-11.0)
[2017-09-04 18:56] LABS: ANION GAP 9 mmol/L (7-16); BUN 16 mg/dL (7-18); CALCIUM 9.5 mg/dL (8.5-10.1); CHLORIDE 97 mmol/L (98-107); CO2 28 mmol/L (21-32); GLUCOSE 99 mg/dL (70-99); POTASSIUM 3.7 mmol/L (3.5-5.1); SODIUM 134 mmol/L (136-145)
[2017-09-04 18:57] LABS: APTT 28.2 Seconds (25.0-31.3); INR 1.2
[2017-09-04 19:07] LABS: ALBUMIN 3.9 g/dL (3.4-5.0); ALKALINE PHOSPHATASE 63 U/L (46-116); NT-PRO BRAIN NAT PEPTIDE 1953 pg/mL (<300); SGOT 24 U/L (15-37); SGPT 35 U/L (30-65); TOTAL BILIRUBIN 0.9 mg/dL (<0.1-1.0); TROPONIN-I LEVEL <0.06 ng/mL (<0.06)
[2017-09-04 20:48] VITALS: BP 165/68
[2017-09-04 21:00] VITALS: BP 124/54
[2017-09-05] VITALS: BP 109/51
--- NOTE | 2017-09-05 03:34 | NUR ---
PATIENT RESTED IN BED. NO ACUTE CHANGES, PATIENT DID NOT SHOW SIGNS OF DISTRESS. PATIENT STATES DIZZINESS DECREASED. FALL PRECAUTIONS IN PLACE, BED ALARM ON, HOURLY ROUNDING OBSERVED.
[2017-09-05 04:50] VITALS: BP 122/97
[2017-09-05 08:00] VITALS: BP 112/54
[2017-09-05 11:32] VITALS: BP 115/53
--- NOTE | 2017-09-05 13:28 | EKG ---
[place] [address] ELECTROCARDIOGRAM REPORT Name: CICI CORTEZ Room: [address] ADM IN .R.#: [id number] Admission: 09/04/17 Attend Phys: Horace Flores, Discharge: Date of : 31 Report #: [id number] THIS REPORT FOR: //name// [facility] ED Test Date: 2017-09-04 Test Time: 18:23:20 Pat Name: CICI CORTEZ Department: Room: [facility] Gender: F Senior Account Clerk: YASH : 1930 Requested By: Galina Penny Order Number: [id number] MD: Robert Cervantes Measurements Intervals [place] Rate: 62 P: 82 UT: 215 QRS: 15 QRSD: 98 T: 90 QT: 467 QTc: 475 Interpretive Statements Sinus rhythm Borderline prolonged UT interval Probable left atrial enlargement LVH with secondary repolarization abnormality Baseline wander in lead(s) V6 Compared to ECG 08/25/2017 03:26:13 Left ventricular hypertrophy now present Early repolarization now present Short UT interval no longer present Prolonged QT interval no longer present Electronically Signed On 09-05-2017 13:28:35 CDT by Robert Cervantes [email or web address] <ELECTRONICALLY SIGNED> By: Meredith Cervantes MD, [facility] 09/05/17 1328 22 22 Meredith Cervantes MD, [facility] /EPI
[2017-09-05 15:27] VITALS: BP 129/58
--- NOTE | 2017-09-05 18:02 | NUR ---
ASSUMED CARE OF PT THIS SHIFT ASSESSED AND DOCUMENTED. PT ON CARDIAC MONITER TRACING SR. PT IS A&O WITH NO C/O PAIN. PT IS ON ROOM AIR AND HAS BEEN AFEBRILE. EDUCATION GIVEN ON DEMAND. HOURLY ROUNDING COMPLETE. FALL PRECAUTIONS IN PLACE PER FACILITY PROTOCOL. PTS SON IS CONCERNED OVER THE WEIGHT LOSS PT HAS HAD SINCE BEING HERE LAST WEEK. HE STATES SHE HAS LOST OVER 10 LBS. PT DOES NOT HAVE A GOOD APPETITE.
[2017-09-05 20:00] VITALS: BP 111/58
[2017-09-06 00:06] VITALS: BP 112/47
[2017-09-06 04:11] VITALS: BP 132/56
--- NOTE | 2017-09-06 07:30 | NUR ---
PATIENT RESTED IN BED, NO ACUTE CHANGES. PATIENT DID NOT SHOW SIGNS OF DISTRESS, PATIENT DID NOT COMPLAIN OF VERTIGO. ANTIVERT NOT IN PYXIS, WAITING FOR ARRIVAL, PHARMACY AND HOUSE SUP., NOTIFIED. FALL PRECAUTIONS IN PLACE, BED ALARM ON, CALL LIGHT WITHIN REACH, HOURLY ROUNDING OBSERVED.
[2017-09-06 08:00] VITALS: BP 143/73
--- NOTE | 2017-09-06 10:10 | NUR ---
RECEIVED REPORT. ASSUMED CARE OF PT AROUND 0730. PT A&O X4. VSS. O2 SAT 96% ON RA. PRIVATE WEALTH ADVISOR IN PLACE TRACING SB/SR. AM ASSESSMENT AND VITALS COMPLETED CHARTED. IV INTACT AND SALINE LOCKED. PT DENIES PAIN OR DISCOMFORT THIS AM. PT REPORTS THAT SHE IS MUCH LESS DIZZY TODAY COMPARED TO YESTERDAY, STATING THAT SHE HAS ONLY FELT DIZZY TODAY WHILE LOOKING DOWN AT THE FLOOR WHILE WALKING. PT STATES SHE FEELS "MUCH, MUCH BETTER TODAY". PT INFORMED OF PLAN OF CARE, PT COMMUNICATES UNDERSTANDING. PT ATE ABOUT 25% OF BREAKFAST THIS AM - ENCOURAGED TO EAT MORE BUT PT REFUSED STATING THE FOOD WASN'T GOOD. PT UP TO BEDSIDE CHAIR THIS MORNING WITH STANDBY ASSIST AND WALKER. PT PERFORMED SELF CARE BATH. PT VOIDING WITHOUT ISSUE. SON CALLED THIS AM FOR UPDATE ON CARE. PT CURRENTLY SITTING IN BEDSIDE CHAIR. LOW FALL RISK PRECAUTIONS IN PLACE. CALL LIGHT IS WITHIN REACH. HOURLY ROUNDING PERFORMED. WCTM FOR DURATION OF SHIFT.
[2017-09-06] MEDS ORDERED: ANTIVERT25 MG PO (11:41)
[2017-09-06 11:58] VITALS: BP 143/73
[2017-09-06 12:07] VITALS: BP 104/49
--- NOTE | 2017-09-06 12:26 | NUR ---
Faxed resumption orders to Alex [facility]IEG[facility]
[2017-09-06 12:47] VITALS: BP 143/73
--- NOTE | 2017-09-06 14:05 | NUR ---
DISCHARGE ORDERS RECEIVED. DISCHARGE COMPLETED DOCUMENTED. DISCHARGE SUMMARY AND CARE NOTES GONE OVER WITH THE PT - PT COMMUNCATES UNDERSTANDING. SCRIPT GIVEN. IV AND AIRCRAFT ELECTRICIAN REMOVED. ALL BELONGINGS GATHERED AND SENT WITH THE PT. VSS REMAIN STABLE. PT WORKED WITH PT AND OT PRIOR TO DC. PT GOING HOME WITH HOME HEALTH. PT SITTING UP IN BEDSIDE CHAIR AT THIS TIME, AWAITING SON FOR TRANSPORT HOME. LOW FALL RISK PRECAUTIONS IN PLACE. CALL LIGHT IS WITHIN REACH. HOURLY ROUNDING PERFORMED. WCTM TILL SON ARRIVES FOR PICK-UP,
== END 2017-09-06 14:34 | disposition home health service (06) | DRG 149 ==
LOC: M.ERS 18:11 → M.2W 19:50 → M.TBA-ER 19:50 → M.2W 20:19
PROVIDERS: Nurse Practitioner Family; ADMIT Family Medicine
DX: H81.10 Benign paroxysmal vertigo, unspecified ear (principal); E46 Unspecified protein-calorie malnutrition; Z68.1 Body mass index [BMI] 19.9 or less, adult; I48.91 Unspecified atrial fibrillation; M19.90 Unspecified osteoarthritis, unspecified site; R26.9 Unspecified abnormalities of gait and mobility; H40.9 Unspecified glaucoma; E78.00 Pure hypercholesterolemia, unspecified; Z90.710 Acquired absence of both cervix and uterus; Z90.49 Acquired absence of other specified parts of digestive tract; Z79.82 Long term (current) use of aspirin; Z79.01 Long term (current) use of anticoagulants; Z79.899 Other long term (current) drug therapy; Z86.73 Personal history of transient ischemic attack (TIA), and cerebral infarction without residual deficits

== ENCOUNTER 2017-10-03 08:44 | Inpatient (IN) | payer MEDICARE, BC ==
[~2017-10-03] VITALS: Ht 157.5 cm; Wt 47.5 kg
--- NOTE | ~2017-10-03 | PROC ---
[address] [address] PROCEDURE REPORT Name: CICI CORTEZ Room: [address] IN .R.#: [id number] Admission: 10/03/17 Attend Phys: Horace Flores, Discharge: Date of : 31 Report #: [id number] THIS REPORT FOR: //name// For GI report, please see the Provation report in Perceptive 7 content. By: 0642Medical Records Staff [facility] /YASH
[~2017-10-03 08:44] MED LIST changes: +ALDACTONE25 MG PO; +ANTIVERT25 MG PO
[2017-10-03 08:54] VITALS: BP 129/54
[2017-10-03 09:08] LABS: ABSOLUTE EOSINOPHILS 0.1 thou/uL (0.0-0.7); ABSOLUTE MONOCYTES 0.6 thou/uL (0.0-1.2); ABSOLUTE NEUTROPHILS 3.8 thou/uL (1.6-8.1); BASOPHILS 0.8 %; EOSINOPHILS 1.1 %; HEMATOCRIT 42.2 % (37.0-47.0); HEMOGLOBIN 14.2 gm/dL (12.0-15.0); LYMPHOCYTES 18.3 %; MCH 28.3 pg (26.0-34.0); MCHC 33.7 g/dL (28.0-37.0); MCV 83.9 fL (80.0-100.0); MONOCYTES 10.8 %; MPV 9.1 fl. (7.2-11.1); NUCLEATED RBCS 0 /100WBC; PLATELET COUNT* 204 thou/uL (150-400); RBC 5.03 mil/uL (4.20-5.00); RDW-CV 14.8 % (10.5-14.5); WBC 5.5 thou/uL (4.0-11.0)
[2017-10-03 09:19] LABS: ANION GAP 6 mmol/L (7-16); BUN 23 mg/dL (7-18); CALCIUM 8.8 mg/dL (8.5-10.1); CHLORIDE 99 mmol/L (98-107); CO2 30 mmol/L (21-32); CREATININE 1.1 mg/dL (0.6-1.3); GLUCOSE 149 mg/dL (70-99); POTASSIUM 3.3 mmol/L (3.5-5.1); SODIUM 135 mmol/L (136-145)
[2017-10-03 09:21] LABS: APTT 26.8 Seconds (25.0-31.3); INR 1.2; PROTIME 11.4 Seconds (9.20-11.50)
[2017-10-03 09:38] LABS: ALBUMIN 3.3 g/dL (3.4-5.0); ALKALINE PHOSPHATASE 43 U/L (46-116); CK-MB MASS 0.9 ng/mL (<0.5-3.6); LIPASE 454 U/L (73-393); MAGNESIUM 1.7 mg/dL (1.8-2.4); NT-PRO BRAIN NAT PEPTIDE 521 pg/mL (<300); SGOT 34 U/L (15-37); SGPT 40 U/L (30-65); TOTAL BILIRUBIN 0.7 mg/dL (<0.1-1.0); TOTAL PROTEIN 6.1 g/dL (6.4-8.2); TROPONIN-I LEVEL <0.06 ng/mL (<0.06)
[2017-10-03 10:39] LABS: URINE BLOOD NEGATIVE (Negative); URINE CLARITY CLEAR; URINE COLOR YELLOW; URINE GLUCOSE-RANDOM NEGATIVE (Negative); URINE KETONES NEGATIVE (Negative); URINE LEUKOCYTES-REFLEX TRACE (Negative); URINE NITRITE-REFLEX NEGATIVE (Negative); URINE PROTEIN TRACE (Negative); URINE SPECIFIC GRAVITY 1.025 (1.005-1.030)
[2017-10-03 10:43] LABS: ICTOTEST (BILI CONFIRMATORY) Negative (Negative); URINE BILIRUBIN 1+ (Negative)
[2017-10-03 12:10] VITALS: BP 149/59
[2017-10-03 12:45] LABS: CALCIUM 8.9 mg/dL (8.5-10.1); CREATININE 0.9 mg/dL (0.6-1.3); POTASSIUM 3.5 mmol/L (3.5-5.1)
[2017-10-03 13:07] VITALS: BP 150/67
[2017-10-03 17:26] VITALS: BP 155/72
[2017-10-03 20:10] VITALS: BP 130/66
[2017-10-04] VITALS: BP 101/48
[2017-10-04 04:30] VITALS: BP 114/54
[2017-10-04 04:30] LABS: HEMATOCRIT 38.3 % (37.0-47.0); HEMOGLOBIN 12.8 gm/dL (12.0-15.0); MCH 28.3 pg (26.0-34.0); MCHC 33.3 g/dL (28.0-37.0); MCV 85.1 fL (80.0-100.0); MPV 8.6 fl. (7.2-11.1); RBC 4.5 mil/uL (4.20-5.00); RDW-CV 14.8 % (10.5-14.5); WBC 5.8 thou/uL (4.0-11.0)
[2017-10-04 04:41] LABS: CALCIUM 8.2 mg/dL (8.5-10.1); CREATININE 0.8 mg/dL (0.6-1.3); MAGNESIUM 1.7 mg/dL (1.8-2.4); POTASSIUM 4.4 mmol/L (3.5-5.1)
[2017-10-04 08:00] VITALS: BP 113/54
--- NOTE | 2017-10-04 10:07 | EKG ---
[place] [address] ELECTROCARDIOGRAM REPORT Name: CICI CORTEZ Room: [address] IN [facility]#: [id number] Admission: 10/03/17 Attend Phys: Horace Flores, Discharge: Date of : 31 Report #: [id number] THIS REPORT FOR: //name// [facility] ED Test Date: 2017-10-03 Test Time: 08:55:01 Pat Name: CICI CORTEZ Department: Room: Gender: F Professional Bass Fisher: : 1930 Requested By: Tee Corado Order Number: [id number] MD: Clemente Lafleur Measurements Intervals [place] Rate: 62 P: 82 DE: 216 QRS: -3 QRSD: 107 T: 46 QT: 464 QTc: 472 Interpretive Statements Sinus rhythm Borderline prolonged DE interval LVH with secondary repolarization abnormality Compared to ECG 09/04/2017 18:23:20 No significant changes Electronically Signed On 10-04-2017 10:07:14 CDT by Clemente Lafleur [email or web address] <ELECTRONICALLY SIGNED> By: Clemente Lafleur MD, [facility] 10/04/17 1007 0855 0855 Clemente Lafleur MD, [facility] /EPI
[2017-10-04 12:17] VITALS: BP 139/63
--- NOTE | 2017-10-04 13:01 | 2DMMODE ---
[place] [address] 2 D/M-MODE ECHOCARDIOGRAM Name: CICI CORTEZ Room: [address] IN [facility]#: [id number] Admission: 10/03/17 Attend Phys: Horace Paez Discharge: Date of : 32 Date of Service: 10/04/17 1301 Report #: [id number] THIS REPORT FOR: //name// APPROVED REPORT Study performed: 10/04/2017 09:58:22 EXAM: Comprehensive 2D, Doppler, and color-flow Echocardiogram Patient Location: In-Patient Room #: 224 Status: routine BSA: 1.41 HR: 57 bpm BP: 113/54 mmHg Rhythm: NSR Other Information Study Quality: Good Indications Tachycardia 2D Dimensions IVSd: 9.92 (7-11mm) LVOT Diam: 20.91 (18-24mm) LVDd: 50.35 mm PWd: 10.26 (7-11mm) Ascending Ao: 26.63 (22-36mm) LVDs: 36.25 (25-40mm) Aortic Root: 27.64 mm Volumes Left Atrial Volume (Systole) LA ESV Index: 50.90 mL/m2 Aortic Valve AoV Peak Ruslan.: 1.16 m/s AO Peak Gr.: 5.38 mmHg LVOT Max P.81 mmHg AO Mean Gr.: 2.62 mmHg LVOT Mean P.10 mmHg LVOT Max V: 0.84 m/s AO V2 VTI: 22.39 cm LVOT Mean V: 0.47 m/s JENNY (VTI): 2.61 cm2 LVOT V1 VTI: 17.03 cm AI Sarpy: 2.62 m/s2 AI PHT: 519.34 ms Mitral Valve E/A Ratio: 1.75 [place] [address] 2 D/M-MODE ECHOCARDIOGRAM Name: CICI CORTEZ Room: [address]#: [id number] Admission: 10/03/17 Attend Phys: Horace Paez Discharge: Date of : 31 Date of Service: 10/04/17 1301 Report #: [id number] MV Decel. Time: 229.26 ms MV E Max Ruslan.: 0.83 m/s MV PHT: 66.49 ms MVA (PHT): 3.31 cm2 TDI E/Lateral E': 27.67 E/Medial E': 10.38 Medial E' Ruslan.: 0.08 m/s Lateral E' Ruslan.: 0.03 m/s Pulmonary Valve PV Peak Ruslan.: 0.61 m/s PV Peak Gr.: 1.47 mmHg Tricuspid Valve TR Peak Gr.: 30.90 mmHg RVSP: 35.00 mmHg Left Ventricle The left ventricle is normal size. There is global hypokinesis of the left ventricle. There is normal left ventricular wall thickness. Left ventricular systolic function is severely decreased. LVEF is 25-30%. Right Ventricle The right ventricle is normal size. The right ventricular systolic function is normal. Atria Left atrium is severely dilated. Right atrium is mildly dilated. Aortic Valve The aortic valve is normal in structure. Moderate aortic regurgitation. There is no aortic valvular stenosis. Mitral Valve The mitral valve is normal in structure. Moderate mitral regurgitation. No evidence of mitral valve stenosis. Tricuspid Valve The tricuspid valve is normal in structure. Mild tricuspid regurgitation. The RVSP is 35-40 mmHg. Pulmonic Valve The pulmonary valve is normal in structure. [place] [address] 2 D/M-MODE ECHOCARDIOGRAM Name: DIEGOCICI Otf Room: [address]#: [id number] Admission: 10/03/17 Attend Phys: Horace Paez Discharge: Date of : 32 Date of Service: 10/04/17 1301 Report #: [id number] Great Vessels The aortic root is normal in size. IVC is normal in size and collapses with >50% inspiration Pericardium There is no pericardial effusion. <Conclusion> LVEF is 25-30%. Left atrium is severely dilated. Moderate aortic regurgitation. Moderate mitral regurgitation. Mild tricuspid regurgitation. The RVSP is 35-40 mmHg. <ELECTRONICALLY SIGNED> By: Clemente Lafleur MD, [facility] 10/04/17 1301 00 130 Clemente Lafleur MD, FAC /INF
[2017-10-04 16:06] VITALS: BP 136/62
[2017-10-04 20:00] VITALS: BP 121/55
[2017-10-05] VITALS (11 sets, daily range): BP systolic 100–134; BP diastolic 41–60
[2017-10-05 04:37] LABS: ABSOLUTE EOSINOPHILS 0.1 thou/uL (0.0-0.7); ABSOLUTE MONOCYTES 0.6 thou/uL (0.0-1.2); ABSOLUTE NEUTROPHILS 4.4 thou/uL (1.6-8.1); BASOPHILS 0.8 %; EOSINOPHILS 1.4 %; HEMATOCRIT 40.2 % (37.0-47.0); HEMOGLOBIN 13.4 gm/dL (12.0-15.0); LYMPHOCYTES 16.8 %; MCH 28.5 pg (26.0-34.0); MCHC 33.4 g/dL (28.0-37.0); MCV 85.4 fL (80.0-100.0); MONOCYTES 9.2 %; MPV 9.1 fl. (7.2-11.1); NUCLEATED RBCS 0 /100WBC; PLATELET COUNT* 198 thou/uL (150-400); POLYS 71.8 %; RBC 4.71 mil/uL (4.20-5.00); RDW-CV 14.7 % (10.5-14.5); WBC 6.1 thou/uL (4.0-11.0)
[2017-10-05 04:53] LABS: ALBUMIN 2.8 g/dL (3.4-5.0); CALCIUM 8.1 mg/dL (8.5-10.1); CREATININE 0.7 mg/dL (0.6-1.3); POTASSIUM 3.6 mmol/L (3.5-5.1); TOTAL BILIRUBIN 0.8 mg/dL (<0.1-1.0); TOTAL PROTEIN 5.1 g/dL (6.4-8.2)
--- NOTE | 2017-10-05 14:57 | EKG ---
[place] [address] ELECTROCARDIOGRAM REPORT Name: CICI CORTEZ Room: [address] IN M.R.#: [id number] Admission: 10/03/17 Attend Phys: Horace Flores, Discharge: Date of : 31 Report #: [id number] THIS REPORT FOR: //name// [facility] Test Date: 2017-10-05 Test Time: 09:56:50 Pat Name: CICI CORTEZ Department: Room: [address] Gender: F Multigraph Operator: BS : 1930 Requested By: Lb Castro Order Number: [id number] Saúl MD: Ishan Becker Measurements Intervals [place] Rate: 62 P: 60 WA: 239 QRS: 9 QRSD: 124 T: 180 QT: 675 QTc: 686 Interpretive Statements Sinus rhythm Prolonged [place] interval Prolonged QT interval Compared to ECG 10/03/2017 08:55:01 Left ventricular hypertrophy no longer present Early repolarization no longer present profound T-wave inversion and QT prolongation noted Electronically Signed On 10-05-2017 14:57:47 CDT by Ishan Becker [email or web address] <ELECTRONICALLY SIGNED> By: Ishan Becker MD, FAC 10/05/17 1457 0956 0956 Ishan Becker MD, [facility] /EPI
[2017-10-06] VITALS (7 sets, daily range): BP systolic 100–132; BP diastolic 43–54
[2017-10-06] MEDS ORDERED: CARVEDILOL3.125 MG PO (14:21)
[2017-10-06] MEDS ORDERED: ELIQUIS2.5 MG PO (14:26)
--- NOTE | 2017-10-06 18:17 | EKG ---
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 : 1930 Requested By: Bettina Case Order Number: [id number] Saúl MD: Clemente Lafleur Measurements Intervals [place] Rate: 60 P: [place]: QRS: 7 QRSD: 113 T: 166 QT: 593 QTc: 593 Interpretive Statements sinus rhythm Borderline intraventricular conduction delay Repol abnrm suggests ischemia, anterolateral Prolonged QT interval Compared to ECG 10/05/2017 09:56:50 no change Electronically Signed On 10-06-2017 18:16:49 CDT by Clemente Lafleur [email or web address] <ELECTRONICALLY SIGNED> By: Clemente Lafleur MD, [facility] 10/06/17 1816 0939 0939 Clemente Lafleur MD, [facility] /EPI
[2017-10-07] VITALS: BP 114/50
[2017-10-07 04:00] VITALS: BP 124/50
[2017-10-07 07:45] VITALS: BP 148/61
[2017-10-07] MEDS ORDERED: PROTONIX40 M1 PO (09:41)
[2017-10-07 12:18] VITALS: BP 119/53
[2017-10-07] MEDS ORDERED: ERYTHROMYCIN250 MG PO (14:37)
--- NOTE | 2017-10-18 08:22 | CON ---
[address] [address] CONSULTATION Name: CICI CORTEZ Room: [address] IN M.R.#: [id number] Admission: 10/03/17 Attend Phys: Horace Flores, Discharge: 10/07/17 Date of : 32 Report #: [id number] THIS REPORT FOR: //name// CC: Ishan Flores DATE OF SERVICE: 10/04/2017 ADDENDUM I have personally seen and examined the patient and reviewed labs and imaging. The patient with history of colonoscopy 4 years ago, who also has family history of colon cancer in sister and brother. The patient presents with 8 days of constipation. Also, reports symptoms of nausea, vomiting and dysphagia with weight loss of at least 20 pounds in the past couple of months. We will go ahead and perform an upper endoscopy and put the patient on bowel regimen. We will talk with the family in regards to possible colonoscopy if the patient does not respond to the bowel regimen. <ELECTRONICALLY SIGNED> By: Yusra Berry MD 10/18/17 0822 1514 [id number] Berry MD /nt
--- NOTE | 2017-10-18 08:22 | CON ---
[address] [address] CONSULTATION Name: SHELBI CORTEZENCE Otf Room: [address] IN .R.#: [id number] Admission: 10/03/17 Attend Phys: Horace Flores, Discharge: 10/07/17 Date of : 32 Report #: [id number] THIS REPORT FOR: //name// CC: BRANDON Grady DICTATED BY: Nory Infante [facility] DATE OF SERVICE: 10/04/2017 Please note at the time of this dictation, the patient was seen and physically examined by myself. REASON FOR CONSULTATION: Nausea and vomiting and weight loss. HISTORY OF PRESENT ILLNESS: This is an 86-year-old female who presented to the Emergency Room with complaint of heart palpitations that started yesterday morning and just complaint of generalized weakness. The patient states that she had been taking her blood pressure multiple times that morning and noticed that she had a very fast pulse; however, she quit taking all of her home medications over the past couple of weeks because she has not been able to keep anything down. She states she has not been able to eat or drink much of anything. She states when she does, it feels like it gets stuck in the middle of her chest and comes right back up. Her states she has probably lost about 20 pounds since all of this is started. The patient states that is why she was not taking any of her medications at that time. The patient did have a colonoscopy with Dr. Veloz back in 2013 that was completely normal at that time and it was to be repeated only as needed due to her age. The patient has never had an upper endoscopy either. She does continue to complain that she has no taste, everything is kind of metallic tasting or no taste at all and has no appetite. She denies any abdominal discomfort at this time. The patient states her bowel habits have not changed. She will go a week to maybe 10 days with no bowel movement. She states she has had a long history of constipation, but does not usually take anything for that. PAST MEDICAL HISTORY: History of pneumonia and glaucoma in her left eye. PAST SURGICAL HISTORY: Negative. ALLERGIES: No known drug allergies. MEDICATIONS FROM HOME: She has stopped everything. FAMILY HISTORY: Significant for colon cancer in [place] [address] CONSULTATION Name: CICI CORTEZ Room: [address]#: [id number] Admission: 10/03/17 Attend Phys: Horace Flores, Discharge: 10/07/17 Date of : 32 Report #: [id number] SOCIAL HISTORY: She lives with her . Denies any alcohol, tobacco or illegal drug use. REVIEW OF SYSTEMS: A 12-point review of systems is essentially negative except what is mentioned in the HPI. PHYSICAL EXAMINATION: VITAL SIGNS: Temperature 36.6, pulse 61, respirations 16, blood pressure 113/54. HEART: Regular rate and rhythm. LUNGS: Clear. ABDOMEN: Soft, positive bowel sounds in all 4 quadrants with no masses or tenderness noted. LABORATORY DATA: Hemoglobin is 12.8, hematocrit 38.3, white count is 5.8, platelets 173. Sodium 135, potassium 4.5, chloride 105, CO2 of 26, BUN is 16, creatinine is 0.8, GFR is 68, glucose 76. TSH is 4.6. CT shows hepatic cyst, otherwise a large amount of stool throughout the entire colon. IMPRESSION: 1. Nausea and vomiting. 2. Dysphagia. 3. Weight loss of 20 pounds over the last several weeks. 4. Constipation, chronic, will go a week to 10 days at a time. 5. Family history of colon cancer, brother and sister. Last colon was in 2013, negative and was told she did not need to have another one due to her age. PLAN: 1. EGD tomorrow with Dr. Berry. 2. We will give the patient some Dulcolax tablets and suppositories to see if this will help facilitate a bowel movement. 3. We will wait and see how she does with results from above and needs a better bowel regimen going home. 4. Further recommendations to be made after the above procedure has been performed tomorrow. Thank you for allowing us to participate in this patient's care. Please do not hesitate to call with any questions in regard to this consult. ADDENDUM I have personally seen and examined the patient and reviewed labs and imaging. The patient with history of colonoscopy 4 years ago, who also has family history of colon cancer in sister and brother. The patient presents with 8 days of constipation. Also, reports symptoms of nausea, vomiting and dysphagia with [address] [address] CONSULTATION Name: CICI CORTEZ Room: M.224-P DIS IN M.R.#: [id number] Admission: 10/03/17 Attend Phys: Horace Flores, Discharge: 10/07/17 Date of : 32 Report #: [id number] weight loss of at least 20 pounds in the past couple of months. We will go ahead and perform an upper endoscopy and put the patient on bowel regimen. We will talk with the family in regards to possible colonoscopy if the patient does not respond to the bowel regimen. <ELECTRONICALLY SIGNED> By: Yusra Berry MD 10/18/17 0822 [id number] Berry MD /nt
== END 2017-10-07 15:00 | disposition home or self-care (01) | DRG 438 ==
LOC: M.ERS 08:44 → M.TBA-ER 10:28 → M.2W 10:28
PROVIDERS: Family Medicine; Internal Medicine; ADMIT Family Medicine
PROC: 0DB68ZX Excision of Stomach, Via Natural or Artificial Opening Endoscopic, Diagnostic (ICD-10-PCS; principal; 2017-10-05)
DX: K85.90 Acute pancreatitis without necrosis or infection, unspecified (principal); E43 Unspecified severe protein-calorie malnutrition; I50.22 Chronic systolic (congestive) heart failure; I47.1 Supraventricular tachycardia; I42.8 Other cardiomyopathies; Z68.1 Body mass index [BMI] 19.9 or less, adult; K29.00 Acute gastritis without bleeding; H40.9 Unspecified glaucoma; E86.0 Dehydration; K56.41 Fecal impaction; E03.9 Hypothyroidism, unspecified; E87.6 Hypokalemia; I48.0 Paroxysmal atrial fibrillation; K44.9 Diaphragmatic hernia without obstruction or gangrene; T78.1XXA Other adverse food reactions, not elsewhere classified, initial encounter; Z80.0 Family history of malignant neoplasm of digestive organs; Z82.49 Family history of ischemic heart disease and other diseases of the circulatory system; Z91.14 Patient's other noncompliance with medication regimen

== ENCOUNTER → 2017-12-31 | Outpatient (CLI) | payer MEDICARE, BC, OTHER ==
[~2017-12-31] MED LIST changes: +ELIQUIS2.5 MG PO; +ERYTHROMYCIN250 MG PO; +PROTONIX40 M1 PO
[2017-12-31 11:04] LABS: CALCIUM 9.1 mg/dL (8.5-10.1); CREATININE 0.9 mg/dL (0.6-1.3); POTASSIUM 4.3 mmol/L (3.5-5.1)
== END ==
LOC: M.LAB 10:35
PROVIDERS: Nurse Practitioner
DX: I42.8 Other cardiomyopathies (principal); I50.22 Chronic systolic (congestive) heart failure

== ENCOUNTER → 2018-06-13 | Outpatient (CLI) | payer MEDICARE, BC, OTHER ==
--- NOTE | 2018-06-13 17:43 | 2DMMODE ---
[place] [address] 2 D/M-MODE ECHOCARDIOGRAM Name: DIEGOCICI KATHLEEN Room: [facility]#: [id number] Admission: 06/13/18 Attend Phys: Ishan Becker, Discharge: Date of : 32 Date of Service: 06/13/18 1743 Report #: [id number] THIS REPORT FOR: //name// APPROVED REPORT Study performed: 06/13/2018 13:49:11 EXAM: Comprehensive 2D, Doppler, and color-flow Echocardiogram Patient Location: Out-Patient Status: routine BSA: 1.48 HR: 60 bpm BP: 113/52 mmHg Other Information Study Quality: Good Indications Congestive Heart Failure 2D Dimensions IVSd: 10.50 (7-11mm) LVOT Diam: 20.31 (18-24mm) LVDd: 42.22 mm PWd: 9.57 (7-11mm) Ascending Ao: 25.08 (22-36mm) LVDs: 27.30 (25-40mm) Aortic Root: 23.88 mm Volumes Left Atrial Volume (Systole) LA ESV Index: 27.80 mL/m2 Aortic Valve AoV Peak Ruslan.: 1.19 m/s AO Peak Gr.: 5.66 mmHg LVOT Max P.89 mmHg AO Mean Gr.: 2.51 mmHg LVOT Mean P.37 mmHg LVOT Max V: 0.85 m/s AO V2 VTI: 20.93 cm LVOT Mean V: 0.53 m/s JENNY (VTI): 2.98 cm2 LVOT V1 VTI: 19.24 cm AI Hooker: 2.13 m/s2 AI PHT: 546.91 ms Mitral Valve E/A Ratio: 0.92 MV Decel. Time: 174.04 [place] [address] 2 D/M-MODE ECHOCARDIOGRAM Name: CICI CORTEZ Room: [facility]#: [id number] Admission: 06/13/18 Attend Phys: Ishan Becker, Discharge: Date of : 32 Date of Service: 06/13/18 1743 Report #: [id number] MV E Max Ruslan.: 0.52 m/s MV PHT: 50.47 ms MVA (PHT): 4.36 cm2 TDI E/Lateral E': 4.73 E/Medial E': 6.50 Medial E' Ruslan.: 0.08 m/s Lateral E' Ruslan.: 0.11 m/s Pulmonary Valve PV Peak Ruslan.: 0.77 m/s PV Peak Gr.: 2.37 mmHg Tricuspid Valve RAP Estimate: 5.00 mmHg TR Peak Gr.: 25.71 mmHg RVSP: 30.71 mmHg PA Pressure: 30.71 mmHg Left Ventricle The left ventricle is normal size. There is normal LV segmental wall motion. There is normal left ventricular wall thickness. Left ventricular systolic function is normal. LVEF is 50-55%. Grade I - abnormal relaxation pattern. Right Ventricle The right ventricle is normal size. The right ventricular systolic function is normal. Atria The left atrium size is normal. The right atrium size is normal. Aortic Valve The aortic valve is normal in structure. Moderate aortic regurgitation. There is no aortic valvular stenosis. Mitral Valve The mitral valve is normal in structure. Mild to moderate mitral regurgitation. No evidence of mitral valve stenosis. Tricuspid Valve The tricuspid valve is normal in structure. Mild tricuspid regurgitation. No pulmonary hypertension. Pulmonic Valve The pulmonary valve is normal in structure. Mild [place] [address] 2 D/M-MODE ECHOCARDIOGRAM Name: CICI CORTEZ Room: [facility]#: [id number] Admission: 06/13/18 Attend Phys: Ishan Becker, Discharge: Date of : 32 Date of Service: 06/13/18 1743 Report #: [id number] Great Vessels The aortic root is normal in size. IVC is normal in size and collapses >50% with inspiration. Pericardium There is no pericardial effusion. <Conclusion> The left ventricle is normal size. There is normal left ventricular wall thickness. Left ventricular systolic function is normal. LVEF is 50-55%. Grade I - abnormal relaxation pattern. Moderate aortic regurgitation. Mild to moderate mitral regurgitation. Mild tricuspid regurgitation. No pulmonary hypertension. Mild pulmonic regurgitation. IVC is normal in size and collapses >50% with inspiration. <ELECTRONICALLY SIGNED> By: Ishan Becker MD, [facility] 06/13/18 [phone] Ishan Becker MD, FACC /INF
== END ==
LOC: M.CRD 13:23
DX: I08.3 Combined rheumatic disorders of mitral, aortic and tricuspid valves (principal); I42.8 Other cardiomyopathies

== ENCOUNTER → 2018-08-02 | Outpatient (CLI) | payer MEDICARE, BC, OTHER | LOC: M.RAD 12:44 | DX: Z12.31 Encounter for screening mammogram for malignant neoplasm of breast (principal) ==